=== PATIENT | male | born 1990 | race Two or more races ===

== ENCOUNTER 2023-05-07 08:00 | Emergency (ER) | payer SELFPAY ==
[~2023-05-07] VITALS: Ht 170.2 cm; Wt 54.5 kg
[2023-05-07 08:00] VITALS: BP 132/87; RESP 25; O2SAT 96
[2023-05-07 08:01] VITALS: PULSE 139
== END 2023-05-07 08:04 | disposition left against medical advice (07) ==
LOC: EDBD 08:00 → ER 08:00
DX: T40.411A Poisoning by fentanyl or fentanyl analogs, accidental (unintentional), initial encounter (principal); R07.89 Other chest pain; Z53.21 Procedure and treatment not carried out due to patient leaving prior to being seen by health care provider; Y92.89 Other specified places as the place of occurrence of the external cause
CPT/HCPCS: 93005

== ENCOUNTER 2023-05-15 21:40 | Emergency (ER) | payer SELFPAY ==
[~2023-05-15] VITALS: Ht 167.6 cm; Wt 59.1 kg
[2023-05-15 21:55] VITALS: BP 133/81; PULSE 128; RESP 24; O2SAT 97
== END 2023-05-15 22:30 | disposition left against medical advice (07) ==
LOC: EDBD 21:40 → ER 21:43
DX: M79.10 Myalgia, unspecified site (principal); M79.89 Other specified soft tissue disorders; Z53.21 Procedure and treatment not carried out due to patient leaving prior to being seen by health care provider